=== PATIENT | female | born 1945 | race Caucasian/White ===

== ENCOUNTER 2017-11-15 16:20 | Emergency (ER) | payer MEDICARE, BC | END 2017-11-15 17:30 | disposition home or self-care (01) | LOC: ER 16:20 | DX: S09.90XA Unspecified injury of head, initial encounter (principal); I48.91 Unspecified atrial fibrillation; I10 Essential (primary) hypertension; E78.00 Pure hypercholesterolemia, unspecified; Z79.01 Long term (current) use of anticoagulants; Z86.73 Personal history of transient ischemic attack (TIA), and cerebral infarction without residual deficits; Z88.7 Allergy status to serum and vaccine; W19.XXXA Unspecified fall, initial encounter; Y93.89 Activity, other specified; Y99.8 Other external cause status; Y92.89 Other specified places as the place of occurrence of the external cause | CPT/HCPCS: 99284 ==

== ENCOUNTER 2019-01-19 13:18 | Emergency (ER) | payer MEDICARE, BC ==
[~2019-01-19] VITALS: Ht 170.2 cm; Wt 69.4 kg
[~2019-01-19 13:18] MED LIST: ACET500T33 PO; BENZ-8 PO; CALC-98 PO; HYDR25TA PO; IBUP200T58 PO; LOSA100T14 PO; SIMV40TA3 PO; WARF1TAB69 PO
--- NOTE | 2019-01-19 13:29 | PHYS DOC ---
Past Medical History Past Medical History: Arthritis, CVA, High Cholesterol, Hypertension Additional Past Medical Histor: dislocated elbow, foot Past Surgical History: Knee Replacement Additional Past Surgical Histo: BILAT KNEE REPLACEMENT Alcohol Use: None Drug Use: None Adult General Chief Complaint Chief Complaint: MECHANICAL FALL HPI HPI Patient is a 73 year old female who presents with right-sided head injury. Patient had a mechanical trip and fall. No loss of consciousness. She is on Coumadin for history of previous stroke. She has no significant residual deficit but does have to walk with a walker. She was walking with a car instead of a walker when this happened. No new weakness, numbness, or paresthesias. Reports that her last tetanus vaccine was 8 or 9 years ago. Bleeding has stopped with pressure.[] Review of Systems Review of Systems Constitutional: Denies fever or chills [] Eyes: Denies change in visual acuity, redness, or eye pain [] HENT: Denies nasal congestion or sore throat [] Respiratory: Denies cough or shortness of breath [] Cardiovascular: No chest pain or palpitations[] GI: Denies abdominal pain, nausea, vomiting, bloody stools or diarrhea [] : Denies dysuria or hematuria [] Musculoskeletal: Denies back pain or joint pain [] Integument: Denies rash or skin lesions, see history of present illness for laceration [] Neurologic: Denies headache, focal weakness or sensory changes [] Endocrine: Denies polyuria or polydipsia [] All other systems were reviewed and found to be within normal limits, except as documented in this note. Current Medications Current Medications Current Medications Medications (Trade) Dose Ordered Sig/Ortiz Start Time Stop Time Status Last Admin Dose Admin Diphtheria/ Tetanus/Acell Pertussis (Boostrix) 0.5 ml ONCE ONCE 01/19/19 13:30 01/19/19 13:31 DC 01/19/19 13:42 0.5 ML Allergies Allergies Allergies Coded Allergies Type Severity Reaction Last Updated Verified pneumococcal vaccine Allergy Intermediate arm swelling 10/16/14 No Physical Exam Physical Exam Constitutional: Well developed, well nourished, no acute distress, non-toxic appearance. [] HENT: Normocephalic, right-sided facial laceration at the edge of the orbital rim, bilateral external ears normal, TMs are clear, no blood no fluid, oropharynx moist, no oral exudates, nose normal. [] Eyes: PERRLA, EOMI, conjunctiva normal, no discharge. [] Neck: Normal range of motion, no tenderness, supple, no stridor. [] Cardiovascular:Heart rate regular rhythm, no murmur [] Lungs & Thorax: Bilateral breath sounds clear to auscultation [] Abdomen: Bowel sounds normal, soft, no tenderness, no masses, no pulsatile masses. [] Skin: Warm, dry, no erythema, no rash. [] Back: No tenderness, no CVA tenderness. [] Extremities: No tenderness, no cyanosis, no clubbing, ROM intact, no edema. [] Neurologic: Alert and oriented X 3, normal motor function, normal sensory function, no focal deficits noted. [] Psychologic: Affect normal, judgement normal, mood normal. [] Current Patient Data Vital Signs Vital Signs Date Time Temp Pulse Resp B/P (MAP) Pulse Ox O2 Delivery O2 Flow Rate FiO2 01/19/19 13:18 97.9 62 18 117/74 (88) 97 Room Air 97.9 Lab Values Laboratory Tests Test 01/19/19 13:30 White Blood Count 7.2 x10^3/uL (4.0-11.0) Red Blood Count 4.25 x10^6/uL (3.50-5.40) Hemoglobin 12.7 g/dL (12.0-15.5) Hematocrit 38.7 % (36.0-47.0) Mean Corpuscular Volume 91 fL (79-100) Mean Corpuscular Hemoglobin 30 pg (25-35) Mean Corpuscular Hemoglobin Concent 33 g/dL (31-37) Red Cell Distribution Width 14.4 % (11.5-14.5) Platelet Count 248 x10^3/uL (140-400) Neutrophils (%) (Auto) 59 % (31-73) Lymphocytes (%) (Auto) 30 % (24-48) Monocytes (%) (Auto) 9 % (0-9) Eosinophils (%) (Auto) 1 % (0-3) Basophils (%) (Auto) 1 % (0-3) Neutrophils # (Auto) 4.2 x10^3uL (1.8-7.7) Lymphocytes # (Auto) 2.2 x10^3/uL (1.0-4.8) Monocytes # (Auto) 0.6 x10^3/uL (0.0-1.1) Eosinophils # (Auto) 0.1 x10^3/uL (0.0-0.7) Basophils # (Auto) 0.0 x10^3/uL (0.0-0.2) Prothrombin Time 27.4 SEC (11.7-14.0) H Prothrombin Time INR 2.6 (0.8-1.1) H Sodium Level 137 mmol/L (136-145) Potassium Level 4.2 mmol/L (3.5-5.1) Chloride Level 101 mmol/L (98-107) Carbon Dioxide Level 30 mmol/L (21-32) Anion Gap 6 (6-14) Blood Urea Nitrogen 41 mg/dL (7-20) H Creatinine 1.4 mg/dL (0.6-1.0) H Estimated GFR (Cockcroft-Gault) 37.1 Glucose Level 114 mg/dL (70-99) H Calcium Level 9.4 mg/dL (8.5-10.1) Laboratory Tests 01/19/19 13:30 Laboratory Tests 01/19/19 13:30 EKG EKG [] Radiology/Procedures Radiology/Procedures CT HEAD AND CERVICAL SPINE WO Indication: pt fell; head/neck pain Exposure: One or more of the following individualized dose reduction techniques were utilized for this examination: 1. Automated exposure control 2. Adjustment of the mA and/or kV according to patient size 3. Use of iterative reconstruction technique. Technique: Standard imaging without intravenous contrast. CT head No prior studies are currently available. There is low-density in the left parieto-occipital region, compatible with encephalomalacia or old infarct. There is ex vacuo dilatation of the adjacent lateral ventricle. No evidence of acute intracranial hemorrhage, mass effect, midline shift or abnormal extra-axial fluid collection. There is low attenuation in the right cerebellum, also likely due to an old infarction. Low-density in the white matter bilaterally, a nonspecific finding, but which is commonly due to chronic small vessel ischemic disease in a patient of this age. Generalized atrophy. Orbits appear unremarkable. No large scalp hematoma. Moderate mucosal thickening of the maxillary sinuses. No evidence of a depressed skull fracture although a region of tenderness or impact is not known. IMPRESSION: 1. Evidence of old infarctions involving the left prior occipital region and right cerebellum. 2. Other chronic findings, discussed above. 3. Maxillary sinus disease. 4. No acute intracranial hemorrhage or mass effect. Cervical spine CT Defect at the posterior ring of C1, likely developmental. Cervico-occipital junction intact. C1-C2 is symmetric. No evidence of acute fracture. Vertebral body height appears maintained. Severe degenerative cervical spondylosis. Moderate to severe multilevel spinal and foraminal stenosis. Facet joint degenerative hypertrophy. No evidence of perched or locked facet joint. Mild multilevel spondylolisthesis in the cervical and upper thoracic spine, is likely degenerative in nature. No evidence of prevertebral soft tissue swelling or hematoma. Thyroid is mildly heterogeneous bilaterally. Mild markings in the lung apices may be due to atelectasis or fibrosis. IMPRESSION: 1. Severe degenerative cervical spondylosis with stenosis. 2. No definite acute fracture or traumatic subluxation although the presence of degenerative change could limit detection.[] Course & Med Decision Making Course & Med Decision Making Pertinent Labs and Imaging studies reviewed. (See chart for details) ED course: Patient arrived by EMS, was transported to our bed without any complications, and tolerated exam well. She was transported to and from CT with any consultations. After the return of laboratory and imaging findings these were discussed with the patient who voiced understanding. All questions were answered. Patient was discharged in improved condition. Medical decision making: There is no evidence of supratherapeutic INR, intracranial mass, bleed, skull fracture, nor significant electrolytic abnormalities.[] Dragon Disclaimer Dragon Disclaimer This electronic medical record was generated, in whole or in part, using a voice recognition dictation system. Departure Departure Impression: Primary Impression: Fall Additional Impressions: Minor head injury Facial laceration Disposition: 01 HOME, SELF-CARE Condition: IMPROVED Referrals: FLOR BARCENAS (PCP) Follow-up in 2 days Patient Instructions: Facial Laceration, Head Injury, Adult Additional Instructions: Follow-up with your regular doctor in 2 days. Return to the ER if worsening pain or any other concerns. Scripts Acetaminophen (TYLENOL) 325 Mg Tablet 1-2 TAB PO QID, #60 TAB 0 Refills Prov: MITESH MONTES DO 01/19/19 Laceration Repair Lac Repair Indication: [] Procedure: The patient was placed in the appropriate position the area was then cleaned with soap and water. The laceration was closed with skin glue. The laceration was 0.5 cm long with no gapping. Total repaired wound length: 0.5 cm Other Items: None The patient tolerated the procedure well, hemostasis was achieved. Complications: None. Problem Qualifiers Primary Impression: Fall Encounter type: initial encounter Qualified Codes: W19.XXXA - Unspecified fall, initial encounter Additional Impressions: Minor head injury Encounter type: initial encounter Qualified Codes: S09.90XA - Unspecified injury of head, initial encounter Facial laceration Encounter type: initial encounter Qualified Codes: S01.81XA - Laceration without foreign body of other part of head, initial encounter MITESH MONTES DO Jan 19, 2019 13:29
[2019-01-19] MEDS ORDERED: DIPHTH,PERTUSS(ACELL),TET TOX 0.5 ML DISP.SYRIN. VAX IM ONE (13:30)
[2019-01-19 13:43] LABS: BASO % 1 % (0-3); EOS # 0.1 x10^3/uL (0.0-0.7); EOS % 1 % (0-3); HEMATOCRIT 38.7 % (36.0-47.0); HEMOGLOBIN 12.7 g/dL (12.0-15.5); LYMPH # 2.2 x10^3/uL (1.0-4.8); LYMPH % 30 % (24-48); MEAN CORPUSCULAR HEMOGLOBIN 30 pg (25-35); MEAN CORPUSCULAR HGB CONC 33 g/dL (31-37); MEAN CORPUSCULAR VOLUME 91 fL (79-100); MONO # 0.6 x10^3/uL (0.0-1.1); MONO % 9 % (0-9); NEUT # 4.2 x10^3uL (1.8-7.7); NEUT % 59 % (31-73); PLATELET COUNT 248 x10^3/uL (140-400); RED BLOOD COUNT 4.25 x10^6/uL (3.50-5.40); RED CELL DISTRIBUTION WIDTH 14.4 % (11.5-14.5); WHITE BLOOD COUNT 7.2 x10^3/uL (4.0-11.0)
[2019-01-19 13:52] LABS: PROTHROMBIN TIME PATIENT 27.4 SEC (11.7-14.0)
[2019-01-19 13:57] LABS: CALCIUM 9.4 mg/dL (8.5-10.1); CREATININE 1.4 mg/dL (0.6-1.0); GFR 37.1; POTASSIUM 4.2 mmol/L (3.5-5.1)
[2019-01-19 15:00] VITALS: BP 119/74
--- NOTE | 2019-01-19 15:01 | RAD ---
CT HEAD AND CERVICAL SPINE WO Indication: pt fell; head/neck pain Exposure: One or more of the following individualized dose reduction techniques were utilized for this examination: 1. Automated exposure control 2. Adjustment of the mA and/or kV according to patient size 3. Use of iterative reconstruction technique. Technique: Standard imaging without intravenous contrast. CT head No prior studies are currently available. There is low-density in the left parieto-occipital region, compatible with encephalomalacia or old infarct. There is ex vacuo dilatation of the adjacent lateral ventricle. No evidence of acute intracranial hemorrhage, mass effect, midline shift or abnormal extra-axial fluid collection. There is low attenuation in the right cerebellum, also likely due to an old infarction. Low-density in the white matter bilaterally, a nonspecific finding, but which is commonly due to chronic small vessel ischemic disease in a patient of this age. Generalized atrophy. Orbits appear unremarkable. No large scalp hematoma. Moderate mucosal thickening of the maxillary sinuses. No evidence of a depressed skull fracture although a region of tenderness or impact is not known. IMPRESSION: 1. Evidence of old infarctions involving the left prior occipital region and right cerebellum. 2. Other chronic findings, discussed above. 3. Maxillary sinus disease. 4. No acute intracranial hemorrhage or mass effect. Cervical spine CT Defect at the posterior ring of C1, likely developmental. Cervico-occipital junction intact. C1-C2 is symmetric. No evidence of acute fracture. Vertebral body height appears maintained. Severe degenerative cervical spondylosis. Moderate to severe multilevel spinal and foraminal stenosis. Facet joint degenerative hypertrophy. No evidence of perched or locked facet joint. Mild multilevel spondylolisthesis in the cervical and upper thoracic spine, is likely degenerative in nature. No evidence of prevertebral soft tissue swelling or hematoma. Thyroid is mildly heterogeneous bilaterally. Mild markings in the lung apices may be due to atelectasis or fibrosis. IMPRESSION: 1. Severe degenerative cervical spondylosis with stenosis. 2. No definite acute fracture or traumatic subluxation although the presence of degenerative change could limit detection. Electronically signed by: Tha Chavarria MD (01/19/2019 2:59 PM) [facility]
[2019-01-19] MEDS ORDERED: ACET325T9 PO (15:11)
== END 2019-01-19 15:25 | disposition home or self-care (01) ==
LOC: ER 13:18
DX: S01.81XA Laceration without foreign body of other part of head, initial encounter (principal); I10 Essential (primary) hypertension; E78.00 Pure hypercholesterolemia, unspecified; Z86.73 Personal history of transient ischemic attack (TIA), and cerebral infarction without residual deficits; Z88.7 Allergy status to serum and vaccine; Z79.01 Long term (current) use of anticoagulants; W01.0XXA Fall on same level from slipping, tripping and stumbling without subsequent striking against object, initial encounter; Y93.89 Activity, other specified; Y92.89 Other specified places as the place of occurrence of the external cause; Y99.8 Other external cause status
CPT/HCPCS: 12011; 36415; 70450; 72125; 80048; 85025; 85610; 90471; 90715; 99284-25

== ENCOUNTER 2019-07-05 12:44 | Emergency (ER) | payer MEDICARE, BC ==
[~2019-07-05] VITALS: Ht 160 cm; Wt 65.8 kg
[~2019-07-05 12:44] MED LIST changes: +ACET325T9 PO
[2019-07-05 13:40] LABS: BASO # 0.1 x10^3/uL (0.0-0.2); BASO % 1 % (0-3); EOS # 0.2 x10^3/uL (0.0-0.7); EOS % 3 % (0-3); HEMATOCRIT 36.4 % (36.0-47.0); HEMOGLOBIN 12.3 g/dL (12.0-15.5); LYMPH # 2.1 x10^3/uL (1.0-4.8); LYMPH % 27 % (24-48); MEAN CORPUSCULAR HEMOGLOBIN 31 pg (25-35); MEAN CORPUSCULAR HGB CONC 34 g/dL (31-37); MEAN CORPUSCULAR VOLUME 90 fL (79-100); MONO # 0.7 x10^3/uL (0.0-1.1); MONO % 8 % (0-9); NEUT # 4.8 x10^3/uL (1.8-7.7); NEUT % 61 % (31-73); PLATELET COUNT 261 x10^3/uL (140-400); RED BLOOD COUNT 4.05 x10^6/uL (3.50-5.40); RED CELL DISTRIBUTION WIDTH 14.2 % (11.5-14.5); WHITE BLOOD COUNT 7.8 x10^3/uL (4.0-11.0)
[2019-07-05 13:51] LABS: PROTHROMBIN TIME PATIENT 80.4 SEC (11.7-14.0)
[2019-07-05 14:21] VITALS: BP 128/66
--- NOTE | 2019-07-05 14:42 | PHYS DOC ---
Past Medical History Past Medical History: A-Fib, Arthritis, CVA, High Cholesterol, Hypertension Additional Past Medical Histor: dislocated elbow, foot, CHRONIC PAIN Past Surgical History: Knee Replacement Additional Past Surgical Histo: BILAT KNEE REPLACEMENT Alcohol Use: None Drug Use: None Adult General Chief Complaint Chief Complaint: ABNORMAL LABS [facility] Patient is a 74 year old [f__sex] who presents with [] Review of Systems Review of Systems Constitutional: Denies fever or chills [] Eyes: Denies change in visual acuity, redness, or eye pain [] HENT: Denies nasal congestion or sore throat [] Respiratory: Denies cough or shortness of breath [] Cardiovascular: No additional information not addressed in HPI [] GI: Denies abdominal pain, nausea, vomiting, bloody stools or diarrhea [] : Denies dysuria or hematuria [] Musculoskeletal: Denies back pain or joint pain [] Integument: Denies rash or skin lesions [] Neurologic: Denies headache, focal weakness or sensory changes [] Endocrine: Denies polyuria or polydipsia [] All other systems were reviewed and found to be within normal limits, except as documented in this note. Allergies Allergies Allergies Coded Allergies Type Severity Reaction Last Updated Verified pneumococcal vaccine Allergy Intermediate arm swelling 10/16/14 No Physical Exam Physical Exam Constitutional: Well developed, well nourished, no acute distress, non-toxic appearance. [] HENT: Normocephalic, atraumatic, bilateral external ears normal, oropharynx moist, no oral exudates, nose normal. [] Eyes: PERRLA, EOMI, conjunctiva normal, no discharge. [] Neck: Normal range of motion, no tenderness, supple, no stridor. [] Cardiovascular:Heart rate regular rhythm, no murmur [] Lungs & Thorax: Bilateral breath sounds clear to auscultation [] Abdomen: Bowel sounds normal, soft, no tenderness, no masses, no pulsatile ma sses. [] Skin: Warm, dry, no erythema, no rash. [] Back: No tenderness, no CVA tenderness. [] Extremities: No tenderness, no cyanosis, no clubbing, ROM intact, no edema. [] Neurologic: Alert and oriented X 3, normal motor function, normal sensory function, no focal deficits noted. [] Psychologic: Affect normal, judgement normal, mood normal. [] Current Patient Data Vital Signs Vital Signs Date Time Temp Pulse Resp B/P (MAP) Pulse Ox O2 Delivery O2 Flow Rate FiO2 07/05/19 13:32 98.3 74 20 183/119 (140) 96 Room Air 98.3 Lab Values Laboratory Tests Test 07/05/19 13:10 White Blood Count 7.8 x10^3/uL (4.0-11.0) Red Blood Count 4.05 x10^6/uL (3.50-5.40) Hemoglobin 12.3 g/dL (12.0-15.5) Hematocrit 36.4 % (36.0-47.0) Mean Corpuscular Volume 90 fL (79-100) Mean Corpuscular Hemoglobin 31 pg (25-35) Mean Corpuscular Hemoglobin Concent 34 g/dL (31-37) Red Cell Distribution Width 14.2 % (11.5-14.5) Platelet Count 261 x10^3/uL (140-400) Neutrophils (%) (Auto) 61 % (31-73) Lymphocytes (%) (Auto) 27 % (24-48) Monocytes (%) (Auto) 8 % (0-9) Eosinophils (%) (Auto) 3 % (0-3) Basophils (%) (Auto) 1 % (0-3) Neutrophils # (Auto) 4.8 x10^3/uL (1.8-7.7) Lymphocytes # (Auto) 2.1 x10^3/uL (1.0-4.8) Monocytes # (Auto) 0.7 x10^3/uL (0.0-1.1) Eosinophils # (Auto) 0.2 x10^3/uL (0.0-0.7) Basophils # (Auto) 0.1 x10^3/uL (0.0-0.2) Prothrombin Time 80.4 SEC (11.7-14.0) H Prothrombin Time INR 9.9 (0.8-1.1) *H Activated Partial Thromboplast Time 75 SEC (24-38) H Laboratory Tests 07/05/19 13:10 EKG EKG [] Radiology/Procedures Radiology/Procedures [] Course & Med Decision Making Course & Med Decision Making Pertinent Labs and Imaging studies reviewed. (See chart for details) [] Dragon Disclaimer Dragon Disclaimer This electronic medical record was generated, in whole or in part, using a voice recognition dictation system. Departure Departure Impression: Primary Impression: Supratherapeutic international normalized ratio (INR) Disposition: 01 HOME, SELF-CARE Condition: STABLE Referrals: FLOR BARCENAS (PCP) Patient Instructions: Prothrombin Time, International Normalized Ratio, Warfarin Coagulopathy Additional Instructions: Your coumadin level (INR) was found to be 9.9. It is recommend that you HOLD further doses of coumadin until it has come down to therapeutic range (generally 2.0-3.0). Please have your INR rechecked on Monday07/07/19 with your doctor. You are also welcome to return to ED for any reason or concern. IF you have specific questions regarding your condition, you may also call [facility] at . Your case has already been opened with them today to confirm this plan. DAVON NO DO Jul 05, 2019 14:42
== END 2019-07-05 15:23 | disposition home or self-care (01) ==
LOC: ER 12:44
DX: R79.1 Abnormal coagulation profile (principal); I48.91 Unspecified atrial fibrillation; M19.90 Unspecified osteoarthritis, unspecified site; E78.00 Pure hypercholesterolemia, unspecified; I10 Essential (primary) hypertension; G89.29 Other chronic pain; Z86.73 Personal history of transient ischemic attack (TIA), and cerebral infarction without residual deficits; Z96.653 Presence of artificial knee joint, bilateral; Z88.7 Allergy status to serum and vaccine
CPT/HCPCS: 36415; 85025; 85610; 85730; 99284

== ENCOUNTER 2020-01-20 15:55 | Emergency (ER) | payer MEDICARE, BC ==
[~2020-01-20] VITALS: Ht 170.2 cm; Wt 84.5 kg
[~2020-01-20 15:55] MED LIST changes: +SIMV40TA18 PO; -SIMV40TA3 PO
--- NOTE | 2020-01-20 16:08 | PHYS DOC ---
Past Medical History Past Medical History: A-Fib, Arthritis, CVA, High Cholesterol, Hypertension Additional Past Medical Histor: dislocated elbow, foot, CHRONIC PAIN (DAVON HIRSCH APRN) Past Surgical History: Knee Replacement Additional Past Surgical Histo: BILAT KNEE REPLACEMENT (DAVON HIRSCH APRN) Smoking Status: Never Smoker Alcohol Use: None Drug Use: None (DAVON HIRSCH APRN) Adult General Chief Complaint Chief Complaint: MECHANICAL FALL HPI HPI Patient is a 74 year old female who presents after a fall prior to arrival. The patient was getting out of the pool at the [facility] and tripped and fell on the concrete. She hit her head on the concrete, had negative loss of consciousness. The patient has laceration to the lip, also has a laceration to the bridge of the nose. She states that her INR was last checked 2 weeks ago and was 2.1. (DAVON HIRSCH APRN) Review of Systems Review of Systems Constitutional: Denies fever or chills [] Eyes: Denies change in visual acuity, redness, or eye pain [] HENT: Denies nasal congestion or sore throat [] Respiratory: Denies cough or shortness of breath [] Cardiovascular: No additional information not addressed in HPI [] GI: Denies abdominal pain, nausea, vomiting, bloody stools or diarrhea [] : Denies dysuria or hematuria [] Musculoskeletal: Denies back pain or joint pain [] Integument: Reports facial lacerations. Neurologic: Reports headache, denies focal weakness or sensory changes [] Endocrine: Denies polyuria or polydipsia [] Complete systems were reviewed and found to be within normal limits, except as documented in this note. (DAVON HIRSCH APRN) Allergies Allergies Allergies Coded Allergies Type Severity Reaction Last Updated Verified pneumococcal vaccine Allergy Intermediate arm swelling 10/16/14 No (DAVON NO DO) Physical Exam Physical Exam Constitutional: Well developed, well nourished, no acute distress, non-toxic appearance. [] HENT: Normocephalic, atraumatic, bilateral external ears normal, oropharynx moist, no oral exudates, nose normal. [] Eyes: PERRLA, EOMI, conjunctiva normal, no discharge. [] Neck: Normal range of motion, no tenderness, supple, no stridor. [] Cardiovascular:Heart rate regular rhythm, no murmur [] Lungs & Thorax: Bilateral breath sounds clear to auscultation [] Skin: Patient has a hematoma to the forehead, laceration to the right nasal bridge, laceration to the lip. Extremities: No tenderness, no cyanosis, no clubbing, ROM intact, no edema. [] Neurologic: Alert and oriented X 3, normal motor function, normal sensory function, no focal deficits noted. [] Psychologic: Affect normal, judgement normal, mood normal. [] (DAVON HIRSCH APRN) Current Patient Data Vital Signs Vital Signs Date Time Temp Pulse Resp B/P (MAP) Pulse Ox O2 Delivery O2 Flow Rate FiO2 01/20/20 18:25 56 20 140/65 (90) 100 Room Air 01/20/20 15:55 97.7 97.7 (DAVON NO DO) Lab Values Laboratory Tests Test 01/20/20 16:15 White Blood Count 7.8 x10^3/uL (4.0-11.0) Red Blood Count 4.08 x10^6/uL (3.50-5.40) Hemoglobin 12.3 g/dL (12.0-15.5) Hematocrit 36.8 % (36.0-47.0) Mean Corpuscular Volume 90 fL (79-100) Mean Corpuscular Hemoglobin 30 pg (25-35) Mean Corpuscular Hemoglobin Concent 33 g/dL (31-37) Red Cell Distribution Width 14.0 % (11.5-14.5) Platelet Count 221 x10^3/uL (140-400) Neutrophils (%) (Auto) 55 % (31-73) Lymphocytes (%) (Auto) 32 % (24-48) Monocytes (%) (Auto) 10 % (0-9) H Eosinophils (%) (Auto) 2 % (0-3) Basophils (%) (Auto) 0 % (0-3) Neutrophils # (Auto) 4.3 x10^3/uL (1.8-7.7) Lymphocytes # (Auto) 2.5 x10^3/uL (1.0-4.8) Monocytes # (Auto) 0.8 x10^3/uL (0.0-1.1) Eosinophils # (Auto) 0.2 x10^3/uL (0.0-0.7) Basophils # (Auto) 0.0 x10^3/uL (0.0-0.2) Prothrombin Time 24.5 SEC (11.7-14.0) H Prothrombin Time INR 2.2 (0.8-1.1) H Activated Partial Thromboplast Time 45 SEC (24-38) H Sodium Level 141 mmol/L (136-145) Potassium Level 3.6 mmol/L (3.5-5.1) Chloride Level 103 mmol/L (98-107) Carbon Dioxide Level 31 mmol/L (21-32) Anion Gap 7 (6-14) Blood Urea Nitrogen 33 mg/dL (7-20) H Creatinine 1.5 mg/dL (0.6-1.0) H Estimated GFR (Cockcroft-Gault) 34.1 BUN/Creatinine Ratio 22 (6-20) H Glucose Level 101 mg/dL (70-99) H Calcium Level 9.7 mg/dL (8.5-10.1) Total Bilirubin 0.8 mg/dL (0.2-1.0) Aspartate Amino Transferase (AST) 19 U/L (15-37) Alanine Aminotransferase (ALT) 16 U/L (14-59) Alkaline Phosphatase 70 U/L (46-116) Total Protein 6.7 g/dL (6.4-8.2) Albumin 3.3 g/dL (3.4-5.0) L Albumin/Globulin Ratio 1.0 (1.0-1.7) Laboratory Tests 01/20/20 16:15 Laboratory Tests 01/20/20 16:15 (DAVON NO DO) Lab Values Laboratory Tests Test 01/20/20 16:15 White Blood Count 7.8 x10^3/uL (4.0-11.0) Red Blood Count 4.08 x10^6/uL (3.50-5.40) Hemoglobin 12.3 g/dL (12.0-15.5) Hematocrit 36.8 % (36.0-47.0) Mean Corpuscular Volume 90 fL (79-100) Mean Corpuscular Hemoglobin 30 pg (25-35) Mean Corpuscular Hemoglobin Concent 33 g/dL (31-37) Red Cell Distribution Width 14.0 % (11.5-14.5) Platelet Count 221 x10^3/uL (140-400) Neutrophils (%) (Auto) 55 % (31-73) Lymphocytes (%) (Auto) 32 % (24-48) Monocytes (%) (Auto) 10 % (0-9) H Eosinophils (%) (Auto) 2 % (0-3) Basophils (%) (Auto) 0 % (0-3) Neutrophils # (Auto) 4.3 x10^3/uL (1.8-7.7) Lymphocytes # (Auto) 2.5 x10^3/uL (1.0-4.8) Monocytes # (Auto) 0.8 x10^3/uL (0.0-1.1) Eosinophils # (Auto) 0.2 x10^3/uL (0.0-0.7) Basophils # (Auto) 0.0 x10^3/uL (0.0-0.2) Prothrombin Time 24.5 SEC (11.7-14.0) H Prothrombin Time INR 2.2 (0.8-1.1) H Activated Partial Thromboplast Time 45 SEC (24-38) H Sodium Level 141 mmol/L (136-145) Potassium Level 3.6 mmol/L (3.5-5.1) Chloride Level 103 mmol/L (98-107) Carbon Dioxide Level 31 mmol/L (21-32) Anion Gap 7 (6-14) Blood Urea Nitrogen 33 mg/dL (7-20) H Creatinine 1.5 mg/dL (0.6-1.0) H Estimated GFR (Cockcroft-Gault) 34.1 BUN/Creatinine Ratio 22 (6-20) H Glucose Level 101 mg/dL (70-99) H Calcium Level 9.7 mg/dL (8.5-10.1) Total Bilirubin 0.8 mg/dL (0.2-1.0) Aspartate Amino Transferase (AST) 19 U/L (15-37) Alanine Aminotransferase (ALT) 16 U/L (14-59) Alkaline Phosphatase 70 U/L (46-116) Total Protein 6.7 g/dL (6.4-8.2) Albumin 3.3 g/dL (3.4-5.0) L Albumin/Globulin Ratio 1.0 (1.0-1.7) Laboratory Tests 01/20/20 16:15 Laboratory Tests 01/20/20 16:15 (DAVON HIRSCH APRN) EKG EKG [] (DAVON HIRSCH APRN) Radiology/Procedures Radiology/Procedures Indication: Lip laceration and superior skin to upper lip. Procedure: The patient was placed in the appropriate position. No anesthesia around the laceration was used due to location of laceration and for better cosmetic repair. The area was then cleansed with 210 mL of NS. The laceration was closed with 3 6-0 nylon sutures and lip was closed with 2 5-0 absorbable gut sutures. Total repaired wound length: 2 cm The patient tolerated the procedure. [][facility] [address] [place] [address] IMAGING REPORT Signed PATIENT: JANELLE WILDE ACCOUNT: [id number] : 1945 LOCATION: ER AGE: 74 SEX: F EXAM STATUS: REG ER ORD. PHYSICIAN: DAVON HIRSCH APRN REASON: fall PROCEDURE: CT CERVICAL SPINE WO CONTRAST CT CERVICAL SPINE WO CONTRAST, CT HEAD AND MAXILLOFACIAL WO History: Fall. Pain. Comparison: January 19, 2019 Technique: Noncontrast CT imaging was performed of the head, maxillofacial and cervical spine. Coronal and sagittal reconstructions were performed. Exposure: One or more of the following individualized dose reduction techniques were utilized for this examination: 1. Automated exposure control 2. Adjustment of the mA and/or kV according to patient size 3. Use of iterative reconstruction technique. Findings: Head CT: No intracranial hemorrhage. No mass effect. No hydrocephalus. Anterior scalp soft tissue swelling and hematoma. Chronic left parietal encephalomalacia. Ex vacuo dilatation of the left occipital horn, unchanged. Chronic right cerebellar infarct. Mild brain parenchymal volume loss. Additional foci of decreased attenuation within the hemispheric white matter, most often due to chronic microvascular ischemia. Maxillofacial CT: Acute anterior nasal bone fracture. Adjacent paranasal soft tissue swelling, likely related to laceration. Chronic right orbital medial wall fracture. Orbits are unremarkable. Mild maxillary and ethmoid sinus mucosal thickening. Mastoid air cells are clear. No acute calvarial fracture. Bilateral TMJ arthropathy. Cervical spine CT: Congenital unfused posterior arch C1. Grade 1 anterolisthesis C2 on C3, C3 on C4 and C7 on T1 including T1 on T2. Mild retrolisthesis C4 on C5. Advanced multilevel degenerative disc changes most prominent C4-C5, C5-C6 and C6-C7. Multilevel advanced right-sided facet arthropathy. Multilevel neuroforaminal narrowing. Multilevel canal narrowing most prominent and C4-C5 and C5-C6. Moderate C1-C2 degenerative changes with posterior pannus formation. The degenerative findings are similar compared to prior. Soft tissues are unremarkable. Impression: Head CT: 1. No acute intracranial abnormality. 2. Left parietal encephalomalacia, unchanged. 3. Frontal scalp soft tissue swelling and hematoma. Maxillofacial CT: 1. Acute anterior nasal bone fracture with adjacent soft tissue swelling and gas. Cervical spine CT: 1. No acute fracture or subluxation of the cervical spine. 2. Advanced multilevel cervical spondylosis with multilevel canal and neuroforaminal narrowing. Electronically signed by: Carlos Enrique Eldridge DO (01/20/2020 4:59 PM) [id number] DICTATED and SIGNED BY: CARLOS ENRIQUE ELDRIDGE DO DATE: 01/20/201658 (DAVON HIRSCH APRN) Course & Med Decision Making Course & Med Decision Making Pertinent Labs and Imaging studies reviewed. (See chart for details) Patient was trauma alerted on arrival to the ER. Will get a CT head, face, neck, and will also obtain labs due to the fact that she is on warfarin. Tetanus shot is UTD (less than [address] shows anterior nasal fracture. Repaired laceration to the patient's lip and skin superior to the lip. Labs are unremarkable for acute changes. We will have the patient follow-up with her primary care doctor in 5 to 7 days to have the nylon sutures taken out. Will also have follow-up with ENT regarding the anterior nasal fracture. (DAVON HIRSCH APRN) Dragon Disclaimer Dragon Disclaimer This electronic medical record was generated, in whole or in part, using a voice recognition dictation system. (DAVON HIRSCH APRN) Departure Departure Impression: Primary Impression: Fracture, nasal Additional Impressions: Laceration Fall Disposition: HOME, SELF-CARE Condition: STABLE Referrals: FLOR BARCENAS (PCP) TRACEY CURTIS MD Patient Instructions: Laceration Care, Adult, Nasal Fracture Additional Instructions: Thank you for visiting [facility]. We appreciate you trusting us with your care. If any additional problems come up don't hesitate to return to visit us. Please follow up with your primary care provider so they can plan additional care if needed and know about the problem that you had. If symptoms worsen come back to the Emergency Department. Any concerning symptoms that start such as chest pain, shortness of air, weakness or numbness on one side of the body, running high fevers or any other concerning symptoms return to the ER. Please keep your wound dry, especially for the first 24 hours. After the first 24 hours you can wet the wound for a short time. Do not soak the wound or swim until the sutures have been removed. Please have the sutures removed in 5-7 days by your primary care doctor or return to ER for removal. Please keep the wound clean. Your INR was 2.2 Scripts Amoxicillin/Potassium Clav (AUGMENTIN 875-125 TABLET) 1 Each Tablet 1 TAB PO BID for 7 Days, #14 TAB 0 Refills Prov: DAVON HIRSCH APRN 01/20/20 Attending Signature Attending Signature I have reviewed the PA/ELECTRONICS ENGINEERING MANAGER's note and plan of care. I was available for consultation as needed during the patient's visit in the emergency department. I agree with the clinical impression, plan, and disposition. (DAVON NO DO) Problem Qualifiers Primary Impression: Fracture, nasal Encounter type: initial encounter Fracture type: closed Qualified Codes: S02.2XXA - Fracture of nasal bones, initial encounter for closed fracture DAVON HIRSCH APRN Jan 20, 2020 16:08 DAVON NO DO Jan 20, 2020 20:41
[2020-01-20 16:24] LABS: BASO % 0 % (0-3); EOS # 0.2 x10^3/uL (0.0-0.7); EOS % 2 % (0-3); HEMATOCRIT 36.8 % (36.0-47.0); HEMOGLOBIN 12.3 g/dL (12.0-15.5); LYMPH # 2.5 x10^3/uL (1.0-4.8); LYMPH % 32 % (24-48); MEAN CORPUSCULAR HEMOGLOBIN 30 pg (25-35); MEAN CORPUSCULAR HGB CONC 33 g/dL (31-37); MEAN CORPUSCULAR VOLUME 90 fL (79-100); MONO # 0.8 x10^3/uL (0.0-1.1); MONO % 10 % (0-9); NEUT # 4.3 x10^3/uL (1.8-7.7); NEUT % 55 % (31-73); PLATELET COUNT 221 x10^3/uL (140-400); RED BLOOD COUNT 4.08 x10^6/uL (3.50-5.40); WHITE BLOOD COUNT 7.8 x10^3/uL (4.0-11.0)
[2020-01-20 16:33] LABS: PROTHROMBIN TIME PATIENT 24.5 SEC (11.7-14.0)
[2020-01-20 16:46] LABS: CALCIUM 9.7 mg/dL (8.5-10.1); CREATININE 1.5 mg/dL (0.6-1.0); GFR 34.1; POTASSIUM 3.6 mmol/L (3.5-5.1)
[2020-01-20 16:54] LABS: ALBUMIN 3.3 g/dL (3.4-5.0); TOTAL BILIRUBIN 0.8 mg/dL (0.2-1.0); TOTAL PROTEIN 6.7 g/dL (6.4-8.2)
--- NOTE | 2020-01-20 17:02 | RAD ---
CT CERVICAL SPINE WO CONTRAST, CT HEAD AND MAXILLOFACIAL WO History: Fall. Pain. Comparison: January 19, 2019 Technique: Noncontrast CT imaging was performed of the head, maxillofacial and cervical spine. Coronal and sagittal reconstructions were performed. Exposure: One or more of the following individualized dose reduction techniques were utilized for this examination: 1. Automated exposure control 2. Adjustment of the mA and/or kV according to patient size 3. Use of iterative reconstruction technique. Findings: Head CT: No intracranial hemorrhage. No mass effect. No hydrocephalus. Anterior scalp soft tissue swelling and hematoma. Chronic left parietal encephalomalacia. Ex vacuo dilatation of the left occipital horn, unchanged. Chronic right cerebellar infarct. Mild brain parenchymal volume loss. Additional foci of decreased attenuation within the hemispheric white matter, most often due to chronic microvascular ischemia. Maxillofacial CT: Acute anterior nasal bone fracture. Adjacent paranasal soft tissue swelling, likely related to laceration. Chronic right orbital medial wall fracture. Orbits are unremarkable. Mild maxillary and ethmoid sinus mucosal thickening. Mastoid air cells are clear. No acute calvarial fracture. Bilateral TMJ arthropathy. Cervical spine CT: Congenital unfused posterior arch C1. Grade 1 anterolisthesis C2 on C3, C3 on C4 and C7 on T1 including T1 on T2. Mild retrolisthesis C4 on C5. Advanced multilevel degenerative disc changes most prominent C4-C5, C5-C6 and C6-C7. Multilevel advanced right-sided facet arthropathy. Multilevel neuroforaminal narrowing. Multilevel canal narrowing most prominent and C4-C5 and C5-C6. Moderate C1-C2 degenerative changes with posterior pannus formation. The degenerative findings are similar compared to prior. Soft tissues are unremarkable. Impression: Head CT: 1. No acute intracranial abnormality. 2. Left parietal encephalomalacia, unchanged. 3. Frontal scalp soft tissue swelling and hematoma. Maxillofacial CT: 1. Acute anterior nasal bone fracture with adjacent soft tissue swelling and gas. Cervical spine CT: 1. No acute fracture or subluxation of the cervical spine. 2. Advanced multilevel cervical spondylosis with multilevel canal and neuroforaminal narrowing. Electronically signed by: Carlos Enrique Eldridge DO (01/20/2020 4:59 PM) [id number]
[2020-01-20] MEDS ORDERED: AMOX1TAB61 PO (17:55)
[2020-01-20 18:25] VITALS: BP 140/65
== END 2020-01-20 18:25 | disposition home or self-care (01) ==
LOC: ER 15:55
DX: S02.2XXA Fracture of nasal bones, initial encounter for closed fracture (principal); S01.511A Laceration without foreign body of lip, initial encounter; I48.91 Unspecified atrial fibrillation; E78.00 Pure hypercholesterolemia, unspecified; I10 Essential (primary) hypertension; Z86.73 Personal history of transient ischemic attack (TIA), and cerebral infarction without residual deficits; G89.29 Other chronic pain; Z88.7 Allergy status to serum and vaccine; W18.01XA Striking against sports equipment with subsequent fall, initial encounter; Z91.81 History of falling; Y93.89 Activity, other specified; Y92.89 Other specified places as the place of occurrence of the external cause; Y99.8 Other external cause status
CPT/HCPCS: 12011; 36415; 70450; 70486; 72125; 80053; 85025; 85610; 85730; 99285-25